=== PATIENT | female | born 1965 | race Caucasian/White ===

== ENCOUNTER 2016-08-20 23:15 | Emergency (ER) | payer OTHER ==
[2016-08-21 01:10] VITALS: BP 133/101
== END 2016-08-21 01:10 | disposition home or self-care (01) ==
LOC: ED 23:15
DX: S09.90XA Unspecified injury of head, initial encounter (principal); Y08.89XA Assault by other specified means, initial encounter; Y93.89 Activity, other specified; Y92.89 Other specified places as the place of occurrence of the external cause; Y99.8 Other external cause status; Z88.0 Allergy status to penicillin